=== PATIENT | female | born 1970 | race Caucasian/White ===

== ENCOUNTER 2022-02-20 14:55 | Observation (INO) ==
[2022-02-20 16:54] LABS: Basophils # 0.1 K/mcL (0.0-0.2); Basophils % 0.5 %; Eosinophils % 0.3 %; Hematocrit 50.6 % (35.3-44.9); Hemoglobin 17.2 g/dL (11.5-15.4); Immature Granulocytes % 0.4 % (0-4); Lymphocytes # 3.1 K/mcL (0.6-4.6); Lymphocytes % 24.5 %; Mean Corpuscular Hemoglobin 29.6 pg (28.0-33.3); Mean Corpuscular Volume 87.1 fL (83.0-100.0); Monocytes # 1.2 K/mcL (0.0-1.3); Monocytes % 9.7 %; Neutrophils # 8.3 K/mcL (1.6-8.9); Platelet Count 428 K/mcL (140-400); Red Blood Count 5.81 M/mcL (3.82-4.97); Red Cell Distribution Width 13.1 % (11.5-14.5); Segmented Neutrophils % 64.6 %; White Blood Count 12.8 K/mcL (4.3-11.1)
[2022-02-20 17:10] LABS: Calcium 10.5 mg/dL (8.6-10.3); Potassium 3.8 mEq/L (3.5-5.1)
[2022-02-20] MEDS ORDERED: 0.9 % Sodium Chloride 1,000 ML IVC ONE (17:15)
[2022-02-20] MEDS ORDERED: Naloxone 0.4 MG/ML INJ IVP PRN ×2 (18:35→18:39)
[2022-02-20] MEDS ORDERED: Ondansetron 4 MG/2 ML VIAL IVP PRN (18:39)
[2022-02-20] MEDS ORDERED: Melatonin 3 MG TABLET PO PRN (18:39)
[2022-02-20] MEDS ORDERED: Acetaminophen 325 MG TABLET PO PRN (18:39)
[2022-02-20] MEDS ORDERED: 0.9 % Sodium Chloride 1,000 ML IVC SCH (18:45)
[2022-02-20] MEDS ORDERED: ALPRAZolam 0.5 MG TABLET PO PRN (23:14)
[2022-02-20] MEDS: traZODone 50 MG TABLET PO SCH (23:29)
[2022-02-21] MEDS: 0.9 % Sodium Chloride 1,000 ML IVC SCH ×4 (00:17→17:33)
[2022-02-21 03:14] LABS: Basophils # 0.1 K/mcL (0.0-0.2); Basophils % 0.6 %; Eosinophils # 0.1 K/mcL (0.0-0.6); Eosinophils % 0.9 %; Hematocrit 41.8 % (35.3-44.9); Immature Granulocytes % 0.3 % (0-4); Lymphocytes # 4.1 K/mcL (0.6-4.6); Lymphocytes % 37.2 %; Mean Corpuscular Hemoglobin 29.7 pg (28.0-33.3); Mean Corpuscular Volume 90.1 fL (83.0-100.0); Mean Platelet Volume 11.3 fL (9.4-12.4); Monocytes # 1.3 K/mcL (0.0-1.3); Monocytes % 11.4 %; Neutrophils # 5.4 K/mcL (1.6-8.9); Platelet Count 331 K/mcL (140-400); Red Blood Count 4.64 M/mcL (3.82-4.97); Segmented Neutrophils % 49.6 %
[2022-02-21 03:15] LABS: Hemoglobin 13.8 g/dL (11.5-15.4)
[2022-02-21 03:40] LABS: Calcium 8.6 mg/dL (8.6-10.3); Magnesium 1.8 mg/dL (1.6-2.6); Phosphorous 3.6 mg/dL (2.7-4.5); Potassium 3.5 mEq/L (3.5-5.1)
[2022-02-21] MEDS: *HR* Heparin 5,000 UNIT/ML VIAL SQ SCH ×2 (05:42→17:12)
[2022-02-21] MEDS: Doxycycline 100 MG in 0.9 % Sodium Chloride Mini Bag 100 ML IVPB SCH ×2 (05:42→17:11)
[2022-02-21] MEDS ORDERED: Sulfamethoxazole/Trimeth DS 1 EACH TABLET PO SCH (09:00)
[2022-02-21] MEDS: ALPRAZolam 0.5 MG TABLET PO PRN (12:42)
[2022-02-21] MEDS: polyethylene glycoL 3350 17 GM POWD.PACK PO PRN (12:42)
[2022-02-21 18:44] LABS: Bilirubin,Urine Negative (Negative); Blood,Urine Negative (Negative); Clarity,Urine Clear (Clear); Color,Urine Colorless (Yellow); Glucose,Urine (UA) Normal (Normal); Ketones,Urine Trace mg/dL (Negative); Leukocyte Esterase,Urine Negative (Negative); Nitrite,Urine Negative (Negative); Protein,Urine Negative (Neg-Trace); Urobilinogen,Urine Normal (Normal)
[2022-02-21 18:52] LABS: Protein/Creatinine Ratio,Urine 0.14 mg/mg (0.00-0.20); Sodium, Urine 96.9 mEq/L
[2022-02-21] MEDS: traZODone 50 MG TABLET PO SCH (20:29)
[2022-02-21] MEDS: Doxycycline 100 MG CAPSULE PO SCH ×2 (20:29→20:30)
[2022-02-22 02:34] LABS: Calcium 8.5 mg/dL (8.6-10.3); Potassium 3.9 mEq/L (3.5-5.1)
[2022-02-22] MEDS: 0.9 % Sodium Chloride 1,000 ML IVC SCH ×2 (03:49→08:59)
[2022-02-22 03:57] VITALS: TEMP 97.9; O2SAT 97
[2022-02-22] MEDS: *HR* Heparin 5,000 UNIT/ML VIAL SQ SCH (05:00)
[2022-02-22 07:05] VITALS: BP 117/78; PULSE 84
[2022-02-22] MEDS: Doxycycline 100 MG CAPSULE PO SCH (07:38)
[2022-02-22] MEDS: ALPRAZolam 0.5 MG TABLET PO PRN (07:38)
[2022-02-22] MEDS: polyethylene glycoL 3350 17 GM POWD.PACK PO PRN (07:44)
[2022-02-22] MEDS ORDERED: Sennosides/Docusate Sodium TABLET PO PRN (08:44)
[2022-02-22] MEDS ORDERED: CLINDAMYCIN PHOSPHATE TP SCH (09:00)
== END 2022-02-22 10:40 | disposition home or self-care (01) ==
LOC: EMEROOARM 14:55 → 2ANU 14:55
PROVIDERS: ADMIT Family Medicine; ATTEND Family Medicine